=== PATIENT | female | born 1945 | race Caucasian/White ===

== ENCOUNTER 2021-10-30 15:43 | Outpatient (REF) | payer MEDICARE, OTHER, SELFPAY ==
--- NOTE | ~2021-10-30 | CT_ITS ---
EXAMINATION: CT ABDOMEN WITH CONTRAST CLINICAL INFORMATION: Renal mass. COMPARISON: None TECHNIQUE: Contiguous axial thin section helical images of the abdomen were performed following the administration of oral contrast and 85 mL of Omnipaque 350 intravenous contrast. The data set was reformatted in the coronal and sagittal planes and reviewed on an independent workstation. This CT examination was performed using dose optimization techniques as appropriate, variously including the following: *Automated exposure control *Adjustment of mA and/or kV according to patient size (this includes techniques or standardized protocols for targeted exams where dose is matched to indication/reason for exam; i.e. extremities or head) *Use of iterative reconstruction technique DLP: 348.00 mGy-cm FINDINGS: LUNG BASES: A tiny 2 mm nodule present in the lingula (6:10 along with a punctate granuloma in the right lower lobe in the medial costophrenic sulcus (6:118). No effusions or infiltrates. LIVER, GALLBLADDER, AND BILIARY TREE: Normal liver without masses or bile duct dilatation. The gallbladder is contracted but otherwise unremarkable. PANCREAS: Negative SPLEEN: Normal ADRENAL GLANDS AND KIDNEYS: Normal. A renal mass is not visualized. The adrenal glands appear normal. BOWEL LOOPS: Normal, no evidence of obstruction. LYMPH NODES: No retroperitoneal lymphadenopathy. Some small shotty lymph nodes are present. VASCULAR: Marked calcific atherosclerotic changes present in the aorta without stenosis, aneurysm or dissection. BONES: Mild degenerative changes present in the spine. CT/CT abdomen w con IMPRESSION: 1. Renal mass is not present. 2. Incidental note made of a 2 mm lingular nodule. According to the UPDATED 2017 Fleischner Society recommendations, the advised follow-up imaging for solid nodules < 6 mm is: LOW RISK PATIENT: No routine follow-up. HIGH RISK PATIENT: Optional CT at 12 months. Fleischner guidelines were followed.
== END 2021-10-30 15:44 | disposition home or self-care (01) ==
LOC: HO.CT 15:43
PROVIDERS: PCP Internal Medicine; Visit Provider Internal Medicine
DX: N28.89 Other specified disorders of kidney and ureter (principal)
CPT/HCPCS: 74160